=== PATIENT | female | born 1955 | race Two or more races ===

== ENCOUNTER 2025-03-13 09:07 | Emergency (ER) | payer OTHER ==
[~2025-03-13] VITALS: Ht 162.6 cm; Wt 69.9 kg
[2025-03-13] MEDS ORDERED: KETOROLAC TROMETHAMINE 60 MG VIAL IM ONE (09:45)
[2025-03-13] MEDS ORDERED: IBUPROFEN600 MG PO (16:15)
== END 2025-03-13 16:17 | disposition home or self-care (01) ==
LOC: ER 09:07
DX: S49.81XA Other specified injuries of right shoulder and upper arm, initial encounter (principal); W51.XXXA Accidental striking against or bumped into by another person, initial encounter; Y93.89 Activity, other specified; Y92.89 Other specified places as the place of occurrence of the external cause; Z88.0 Allergy status to penicillin; I49.8 Other specified cardiac arrhythmias; J45.909 Unspecified asthma, uncomplicated
CPT/HCPCS: 73030; 96372; 99283; J1885